=== PATIENT | male | born 1995 | race Caucasian/White ===

== ENCOUNTER 2022-03-12 14:19 | Observation (INO) ==
[2022-03-12 14:57] LABS: Basophils # (auto) 0.06 K/uL (0-0.2); Basophils % (auto) 1.1 %; Eosinophils # (auto) 0.18 K/uL (0-0.50); Eosinophils % (auto) 3.2 %; Hematocrit (blood only) 40.5 % (42.0-52.0); Hemoglobin 13.6 g/dl (14.0-18.0); Immature Granulocytes # (auto) 0.01 K/uL (0.01-0.20); Immature Granulocytes % (auto) 0.2 %; Lymphocytes # (auto) 1.33 K/uL (1.2-3.4); Lymphocytes % (auto) 23.6 %; Mean Corpuscular Hemoglobin 30.2 pg (25.0-34.0); Mean Corpuscular Hgb Conc 33.6 g/dL (32.0-36.0); Mean Platelet Volume 9.7 fL (9.4-12.4); Monocytes # (auto) 0.39 K/uL (0.11-0.59); Monocytes % (auto) 6.9 %; Neutrophils # (auto) 3.66 K/uL (1.40-6.50); Platelet Count 333 K/uL (130-400); RDW Coefficient of Variation 12.1 % (11.5-14.5); RDW Standard Deviation 39.5 fL (36.4-46.3); White Blood Count 5.63 K/ul (4.8-10.8)
--- NOTE | 2022-03-12 15:08 | Emergency Department Note ---
Impression & Plan Foreign body ingestion ED Provider Note NAME: CHENTE [id number] CHRISTIANSEN AGE: 26 SEX: M : 1995 ARRIVES VIA: Walk-In INFORMANT: Patient, ED PROVIDER(S): Simon Reis DO CHIEF COMPLAINT: Possible GI foreign body HPI: The patient is a 26-year-old male who presented to the emergency department for an evaluation of possible GI foreign body. The patient swallowed a part of a glove that had fentanyl inside of it. He currently is at the residential. He states that his visitor was found to have balloons with fentanyl and side. When he came to check his room he put the balloon in his mouth and swallowed it. He states he has been trying to drink plenty of liquids and force himself to vomit but he has not had any resolution of the GI foreign body. He has been able to drink without difficulty. He notices no diarrhea. He said no bowel movement since this incident occurred. This became aware to the [facility] today so they sent him to the emergency department for further evaluation. ROS: See above HPI for pertinent positives & negatives. A total of 10 systems reviewed and were otherwise negative. PAST MEDICAL HISTORY: See Below PAST SURGICAL HISTORY: See Below FAMILY HISTORY: See Below SOCIAL HISTORY: See Below HOME MEDICATIONS: See Below ALLERGIES: See Below VITALS: See Below PHYSICAL EXAMINATION: GENERAL: Patient is awake alert in no acute distress patient is resting comfortably and showing no signs of anxiety EYES: The conjunctivae are clear. The pupils are round and reactive. EARS, NOSE, MOUTH AND THROAT: The nose is without any evidence of any deformity. NECK: The neck is nontender and supple. RESPIRATORY: Normal respiratory effort is noted there is no evidence of wheezing rhonchi or rales CARDIOVASCULAR: Regular rate and rhythm noted there no murmurs rubs or gallops normal S1 normal S2. GASTROINTESTINAL: The abdomen is soft. Abdomen is nontender. MUSCULOSKELETAL/EXTREMITIES: There is no evidence of gross deformity full range of motion is noted in the hips and shoulders. SKIN: There is no obvious evidence of any rash. There are no petechiae, pallor or cyanosis noted. NEUROLOGIC: Patient is awake alert and oriented x3 strength is symmetric patellar reflexes are 2+ bilaterally MEDICAL DECISION MAKING: The patient is a 26-year-old male who presented from the residential for an evaluation of possible ingestion of fentanyl. The patient was visited on . The visitor was detained because they had multiple small rubber luh ves that had the fingers cut off and were filled with fentanyl. The patient ingested his prior to being caught with it. He admitted to swallowing the contraband. He states has not had a bowel movement since that time but he tried to make himself vomit multiple times since then. The patient is not exhibiting signs of opiate toxicity. CT of the abdomen and pelvis was obtained but given the small size of this foreign body it was not definitely identified. I discussed the patient's laboratory and radiographic studies with him. Given his findings I discussed his condition with the on-call [facility] hospitalist. The patient may require a formal bowel prep in order to pass what ever this presumed ingested drug container could be so he does not develop opiate poisoning. Triage Nursing notes reviewed. Prior medical records reviewed Vital Signs: reviewed and remarkable for no significant abnormalities Differential diagnosis: ER treatment provided: See below Diagnostics interpreted by me: ECG: none Cardiac Monitoring: An order was placed for continuous cardiac monitoring. The monitor shows a rate of 74 bpm with sinus rhythm. Laboratory studies: As stated above and show below. Imaging studies: See below. Radiographic imaging was reviewed by myself Consultation(s): I discussed this case with Edith [facility] Past Med/Surg History Medical History Anxiety PTSD (post-traumatic stress disorder) Surgical History H/O wrist surgery Social History Smoking Status: Former smoker Cigarettes Per Day: half a pack; Second Hand Exposure: Yes; Do You Dip or Chew Tobacco: No; Hx Alcohol Use: No Hx Substance Use: No Preferred Language: Scottish Communication Ability: Effective Acds Block 1 Operator Required: No Beliefs That Will Affect Care: None Current Living Situation: Other Current Living Situation Comment: [facility] Feels Safe at Home: Yes Allergies Allergies Allergy/AdvReac Type Severity Reaction Status Date / Time trazodone Allergy Unknown Verified 03/12/22 18:02 Home Meds Home Medications Medication Instructions Recorded Confirmed mirtazapine 15 mg tablet 15 mg PO HS 03/12/22 03/12/22 Results & Data (ED) Vital Signs Vital Signs - 24 hr 03/12/22 14:29 03/12/22 14:39 03/12/22 14:53 Temperature 36.8 C Temperature Source Oral Pulse Rate 90 72 Pulse Rate from SpO2 Sensor 75 Respiratory Rate 24 15 Respiratory Effort / Characteristics Non-Labored Spontaneous Respiratory Depth Normal Respiratory Pattern Regular Blood Pressure 144/102 H Blood Pressure Mean 116 Blood Pressure Position Sitting Pulse Oximetry 98 99 Oxygen Delivery Method Room Air Room Air Sepsis Recent Fever Within 48 Hours No Sepsis New/Unexplained Change in Mental Status No Sepsis Action Taken by Nursing No Action Required 03/12/22 15:00 03/12/22 15:00 03/12/22 15:30 Temperature Temperature Source Pulse Rate 72 Pulse Rate from SpO2 Sensor 77 Respiratory Rate 12 Respiratory Effort / Characteristics Respiratory Depth Respiratory Pattern Blood Pressure 129/79 123/94 Blood Pressure Mean 95 103 Blood Pressure Position Pulse Oximetry 97 Oxygen Delivery Method Sepsis Recent Fever Within 48 Hours Sepsis New/Unexplained Change in Mental Status Sepsis Action Taken by Nursing 03/12/22 15:30 03/12/22 16:00 03/12/22 16:00 Temperature Temperature Source Pulse Rate 63 59 L Pulse Rate from SpO2 Sensor 62 59 L Respiratory Rate 23 16 Respiratory Effort / Characteristics Respiratory Depth Respiratory Pattern Blood Pressure 129/88 Blood Pressure Mean 101 Blood Pressure Position Pulse Oximetry 100 99 Oxygen Delivery Method Sepsis Recent Fever Within 48 Hours Sepsis New/Unexplained Change in Mental Status Sepsis Action Taken by Nursing 03/12/22 16:30 03/12/22 16:30 03/12/22 17:00 Temperature Temperature Source Pulse Rate 62 Pulse Rate from SpO2 Sensor Respiratory Rate 14 Respiratory Effort / Characteristics Respiratory Depth Respiratory Pattern Blood Pressure 122/75 127/80 Blood Pressure Mean 90 95 Blood Pressure Position Pulse Oximetry Oxygen Delivery Method Sepsis Recent Fever Within 48 Hours Sepsis New/Unexplained Change in Mental Status Sepsis Action Taken by Nursing 03/12/22 17:00 03/12/22 17:30 03/12/22 17:30 Temperature Temperature Source Pulse Rate 71 55 L Pulse Rate from SpO2 Sensor Respiratory Rate 20 15 Respiratory Effort / Characteristics Respiratory Depth Respiratory Pattern Blood Pressure 139/75 Blood Pressure Mean 96 Blood Pressure Position Pulse Oximetry 98 Oxygen Delivery Method Sepsis Recent Fever Within 48 Hours Sepsis New/Unexplained Change in Mental Status Sepsis Action Taken by Nursing 03/12/22 18:00 Temperature Temperature Source Pulse Rate 61 Pulse Rate from SpO2 Sensor Respiratory Rate 16 Respiratory Effort / Characteristics Respiratory Depth Respiratory Pattern Blood Pressure 123/86 Blood Pressure Mean 98 Blood Pressure Position Pulse Oximetry 98 Oxygen Delivery Method Sepsis Recent Fever Within 48 Hours Sepsis New/Unexplained Change in Mental Status Sepsis Action Taken by Shelter Medications Current Medication List: was personally reviewed by me Laboratory Data Attestation: I reviewed the patient's lab results. 03/12/22 14:45 03/12/22 14:45 Lab Results 03/12/22 03/12/22 03/12/22 Range/Units 14:45 14:45 17:57 WBC 5.63 (4.8-10.8) K/ul RBC 4.50 L (4.70-6.10) M/uL Hgb 13.6 L (14.0-18.0) g/dl Hct 40.5 L (42.0-52.0) % MCV 90.0 (80.0-100.0) fL MCH 30.2 (25.0-34.0) pg MCHC 33.6 (32.0-36.0) g/dL RDW Std Deviation 39.5 (36.4-46.3) fL RDW Coeff of Memo 12.1 (11.5-14.5) % Plt Count 333 (130-400) K/uL MPV 9.7 (9.4-12.4) fL Immature Gran % (Auto) 0.2 % Neut % (Auto) 65.0 % Lymph % (Auto) 23.6 % Barren % (Auto) 6.9 % Eos % (Auto) 3.2 % Baso % (Auto) 1.1 % Neut # (Auto) 3.66 (1.40-6.50) K/uL Lymph # (Auto) 1.33 (1.2-3.4) K/uL Barren # (Auto) 0.39 (0.11-0.59) K/uL Eos # (Auto) 0.18 (0-0.50) K/uL Baso # (Auto) 0.06 (0-0.2) K/uL Immature Gran # (Auto) 0.01 (0.01-0.20) K/uL Sodium 139 (136-145) mmol/L Potassium 4.7 (3.5-5.1) mmol/L Chloride 103 (98-107) mmol/L Carbon Dioxide 31 (21-32) mmol/L Anion Gap 5 (3-11) BUN 10 (6-23) mg/dl Creatinine 0.85 (0.6-1.4) mg/dl Est Cr Clr Drug Dosing 134.0 ml/min Est GFR ( Amer) 141.3 ml/min Est GFR (Non-Af Amer) 122.0 ml/min BUN/Creatinine Ratio 11.8 (10-20) Glucose 95 (70-99(Fasting)) mg/dl Calcium 9.5 (8.5-10.1) mg/dl Total Bilirubin 0.6 (0.2-1.0) mg/dl AST 22 (13-39) U/L ALT 16 (7-52) U/L Alkaline Phosphatase 52 (34-104) U/L Total Protein 7.9 (6.0-8.3) gm/dl Albumin 4.8 (3.4-5.0) gm/dl Globulin 3.1 (2.5-4.0) gm/dl Albumin/Globulin Ratio 1.5 (0.9-2) Lipase 11 (11-82) U/L SARS-CoV-2, RNA, NAAT NEGATIVE (NEGATIVE) Administered Medications Mirtazapine (Mirtazapine Tab 15 Mg Tab) 15 mg PO HS EDMUND Stop: 04/11/22 20:59 Last Admin: 03/12/22 21:17 Dose: 15 mg Documented By: TMD Discontinued Medications Ioversol (Optiray 350 100ml) 88 ml IV ONCE ONE Stop: 03/12/22 17:22 Last Admin: 03/12/22 17:21 Dose: 88 ml Documented By: DG Imaging Data Radiologist's Impression: Abdomen/Pelvis CT 03/12/22 14:35 CT OF THE ABDOMEN AND PELVIS WITH CONTRAST CLINICAL HISTORY: possible FB COMPARISON STUDY: None. TECHNIQUE: Following IV administration of Optiray, axial images of the abdomen and pelvis were obtained from the lung bases to the proximal femurs. Images were reviewed in the axial, sagittal, and coronal planes. IV contrast was administered without complication. Automated exposure control was utilized for the study. A dose lowering technique was utilized adhering to the principles of ALARA. Oral contrast was administered. CT DOSE: 294.66 mGy.cm FINDINGS: Lung bases are unremarkable. No pneumatosis, free air or portal venous gas is present. No radiopaque foreign bodies are identified. No definite filling defects are identified within the oral contrast. There is no evidence for a bowel obstruction. Liver, spleen, adrenal glands, right kidney and pancreas are normal. There is a 1.9 cm left renal cyst. There is no hydronephrosis. There is no biliary or pancreatic ductal dilatation. The appendix is normal. Caliber and wall thickness of small and large bowel are normal. Major vasculature is patent. IMPRESSION: 1. No radiopaque foreign bodies identified. No definite filling defects within the oral contrast. 2. No evidence for a bowel obstruction. No free air. ACT 112: Negative or not required by law. Electronically signed by: Bull Jensen M.D. 03/12/2022 5:38 PM Discharge Plan Visit Data Chief Complaint: Foreign Body Stated Complaint: SWALLOWED A BALLOON OF FENTANYL ED Provider: Simon Reis Discharge Problem: Foreign body ingestion Patient Disposition: Admitted As Inpatient Discharge Instructions Interventions: ED Discharge Assessment Last Done: 03/12/22 20:23
[2022-03-12 15:23] LABS: Albumin Level 4.8 gm/dl (3.4-5.0); Bilirubin,Total 0.6 mg/dl (0.2-1.0); Calcium 9.5 mg/dl (8.5-10.1); Potassium 4.7 mmol/L (3.5-5.1)
[2022-03-12 15:29] LABS: Albumin Globulin Ratio 1.5 (0.9-2); BUN Creatinine Ratio 11.8 (10-20); Est GFR (African American) 141.3 ml/min; Globulin 3.1 gm/dl (2.5-4.0); Total Protein 7.9 gm/dl (6.0-8.3)
[2022-03-12] MEDS ORDERED: OPTIRAY 350 100ml IV ONE (17:21)
--- NOTE | 2022-03-12 17:39 | CT Scan Report ---
CT OF THE ABDOMEN AND PELVIS WITH CONTRAST CLINICAL HISTORY: possible FB COMPARISON STUDY: None. TECHNIQUE: Following IV administration of Optiray, axial images of the abdomen and pelvis were obtain ed from the lung bases to the proximal femurs. Images were reviewed in the axial, sagittal, and coron al planes. IV contrast was administered without complication. Automated exposure control was utilize d for the study. A dose lowering technique was utilized adhering to the principles of ALARA. Oral co ntrast was administered. CT DOSE: 294.66 mGy.cm FINDINGS: Lung bases are unremarkable. No pneumatosis, free air or portal venous gas is present. No r adiopaque foreign bodies are identified. No definite filling defects are identified within the oral c ontrast. There is no evidence for a bowel obstruction. Liver, spleen, adrenal glands, right kidney an d pancreas are normal. There is a 1.9 cm left renal cyst. There is no hydronephrosis. There is no eufemia iary or pancreatic ductal dilatation. The appendix is normal. Caliber and wall thickness of small and large bowel are normal. Major vasculature is patent. IMPRESSION: 1. No radiopaque foreign bodies identified. No definite filling defects within the oral contrast. 2. No evidence for a bowel obstruction. No free air. ACT 112: Negative or not required by law. Electronically signed by: Bull Jensen M.D. 03/12/2022 5:38 PM
--- NOTE | 2022-03-12 20:02 | History & Physical Report ---
Date of Service March 12, 2022 Assessment & Plan (1) Fentanyl poisoning: (2) Foreign body ingestion: (3) Anxiety: (4) Insomnia: Plan Hx of ingestion of fentanyl with small piece of glove: -ingested it 2 days ago -no acute withdrawal or toxicities symptoms -VSS and normal PE -CT abd: No radiopaque foreign bodies identified. No definite filling defects within the oral contrast. -Labs are unremarkable -pt has not had BM for 2 days but he has been eating less - will do clear liquid diet -admit to tele due to recent hx of fentanyl use - repeat CBC and CMP polly -likely discharge tomorrow Anxiety and Insomnia: -will hold remeron for now Diet:clear liquid diet DVT PPx:Ambulation Code Status:FULL CODE Emergency Contact:CHANTAL Tse History of Present Illness Chief Complaint: ingestion of fentanyl Primary Care Provider: CHANTAL Tse Pt is a 26 y/o M with hx of anxiety and insomnia brought in from [facility] for fentanyl ingestion with piece of glove on 5pm on 03/10 (2 days ago). Per pt he has been eating less and has been drinking more water. He denied any abd pain, N/V, change in vision or mentation, hallucination or delusion. He has not had any BM for 2 days. Pt only takes Remeron at night time. Denied any other drug use Allergies Allergy/AdvReac Type Severity Reaction Status Date / Time trazodone Allergy Unknown Verified 03/12/22 18:02 Home Medications Medication Instructions Recorded Confirmed Type mirtazapine 15 mg tablet 15 mg PO HS 03/12/22 03/12/22 History Past Med/Surg History Medical History Anxiety PTSD (post-traumatic stress disorder) Surgical History H/O wrist surgery Social History Smoking Status: Never smoker Hx Alcohol Use: No Hx Substance Use: Yes Preferred Language: Kinyarwanda Feels Safe at Home: Yes Review of Systems Review of Systems: At least 10 Review of systems were reviewed and all negative except as indicated in HPI Physical Exam Physical Exam: General:. NAD, well developed, well nourished, average body habitus HEENT:. Normocephalic and atraumatic, Normal Conjunctiva, EOMI, Sclera is non- icteric Lungs:. No signs of respiratory distress, CTA, no wheezing or crackles Heart:. Normal S1, S2, no murmur Abdominal:. ND, Soft, NT MSK:. No deformities of UE and LE, No leg edema Neuro exam: PERRLA, CN II-XII intact, normal motor strength Skin:. no rash or open wound Psych:. AAOx3, normal affect Results & Data Results & Data ([facility]) Vital Signs (Past 12 Hours) Vital Signs Temp Pulse Resp BP Pulse Ox O2 Del Method 03/12/22 19:30 53 L 13 03/12/22 19:30 121/74 03/12/22 19:00 67 13 03/12/22 19:00 137/81 03/12/22 18:30 58 L 13 125/83 99 03/12/22 18:00 61 16 123/86 98 03/12/22 17:30 55 L 15 98 03/12/22 17:30 139/75 03/12/22 17:00 71 20 03/12/22 17:00 127/80 03/12/22 16:30 62 14 03/12/22 16:30 122/75 03/12/22 16:00 59 L 16 99 03/12/22 16:00 129/88 03/12/22 15:30 63 23 100 03/12/22 15:30 123/94 03/12/22 15:00 72 12 97 03/12/22 15:00 129/79 03/12/22 14:53 72 15 99 03/12/22 14:39 Room Air 03/12/22 14:29 36.8 C 90 24 144/102 H 98 Room Air Laboratory Results Short CBC 03/12/22 Range/Units 14:45 WBC 5.63 (4.8-10.8) K/ul Hgb 13.6 L (14.0-18.0) g/dl Hct 40.5 L (42.0-52.0) % Plt Count 333 (130-400) K/uL BMP 03/12/22 14:45 Sodium 139 Potassium 4.7 Chloride 103 Carbon Dioxide 31 BUN 10 Creatinine 0.85 Glucose 95 Calcium 9.5 Liver Function 03/12/22 Range/Units 14:45 Total Bilirubin 0.6 (0.2-1.0) mg/dl AST 22 (13-39) U/L ALT 16 (7-52) U/L Alkaline Phosphatase 52 (34-104) U/L Albumin 4.8 (3.4-5.0) gm/dl Diagnostic Findings Abdomen/Pelvis CT 03/12/22 14:35 CT OF THE ABDOMEN AND PELVIS WITH CONTRAST CLINICAL HISTORY: possible FB COMPARISON STUDY: None. TECHNIQUE: Following IV administration of Optiray, axial images of the abdomen and pelvis were obtained from the lung bases to the proximal femurs. Images were reviewed in the axial, sagittal, and coronal planes. IV contrast was administered without complication. Automated exposure control was utilized for the study. A dose lowering technique was utilized adhering to the principles of ALARA. Oral contrast was administered. CT DOSE: 294.66 mGy.cm FINDINGS: Lung bases are unremarkable. No pneumatosis, free air or portal venous gas is present. No radiopaque foreign bodies are identified. No definite filling defects are identified within the oral contrast. There is no evidence for a bowel obstruction. Liver, spleen, adrenal glands, right kidney and pancreas are normal. There is a 1.9 cm left renal cyst. There is no hydronephrosis. There is no biliary or pancreatic ductal dilatation. The appendix is normal. Caliber and wall thickness of small and large bowel are normal. Major vasculature is patent. IMPRESSION: 1. No radiopaque foreign bodies identified. No definite filling defects within the oral contrast. 2. No evidence for a bowel obstruction. No free air. ACT 112: Negative or not required by law. Electronically signed by: Bull Jensen M.D. 03/12/2022 5:38 PM Code Status & VTE Plan VTE Prophylaxis Plan VTE Prophylaxis will be ordered: No Reason for no VTE drug order: Treatment not indicated
[2022-03-12] MEDS ORDERED: ACETAMINOPHEN 325 MG TAB PO PRN (20:45)
[2022-03-12] MEDS ORDERED: ONDANSETRON INJ 2 MG/ML 2 ML VIAL IV PRN (20:45)
[2022-03-12] MEDS ORDERED: MIRTAZAPINE TAB 15 MG TAB PO SCH (21:00)
[2022-03-12] MEDS: MIRTAZAPINE TAB 15 MG TAB PO SCH (21:17)
[2022-03-13 07:01] LABS: Basophils # (auto) 0.05 K/uL (0-0.2); Basophils % (auto) 0.8 %; Eosinophils # (auto) 0.19 K/uL (0-0.50); Hematocrit (blood only) 40.6 % (42.0-52.0); Hemoglobin 13.6 g/dl (14.0-18.0); Immature Granulocytes # (auto) 0.02 K/uL (0.01-0.20); Immature Granulocytes % (auto) 0.3 %; Lymphocytes # (auto) 2.21 K/uL (1.2-3.4); Lymphocytes % (auto) 35.4 %; Mean Corpuscular Hemoglobin 29.9 pg (25.0-34.0); Mean Corpuscular Hgb Conc 33.5 g/dL (32.0-36.0); Mean Corpuscular Volume 89.2 fL (80.0-100.0); Mean Platelet Volume 10.1 fL (9.4-12.4); Monocytes # (auto) 0.53 K/uL (0.11-0.59); Monocytes % (auto) 8.5 %; Neutrophils # (auto) 3.24 K/uL (1.40-6.50); Platelet Count 300 K/uL (130-400); RDW Coefficient of Variation 12.1 % (11.5-14.5); RDW Standard Deviation 39.6 fL (36.4-46.3); Red Blood Count 4.55 M/uL (4.70-6.10); White Blood Count 6.24 K/ul (4.8-10.8)
[2022-03-13 07:31] LABS: Calcium 10.1 mg/dl (8.5-10.1); Magnesium 2.2 mg/dl (1.7-2.4); Potassium 3.9 mmol/L (3.5-5.1)
[2022-03-13 07:36] LABS: Creatinine Clr Calc Pharmacy 142.4 ml/min; Est GFR (African American) 144.9 ml/min
--- NOTE | 2022-03-13 12:22 | Hospitalist Progress Note ---
Date of Service March 13, 2022 Assessment & Plan (1) Fentanyl poisoning: (2) Foreign body ingestion: (3) Anxiety: (4) Insomnia: Plan 26-year-old male with history of anxiety and insomnia on Remeron was brought in from nursing home 03/12 due to history of fentanyl ingestion with a piece of glove at 5 PM on 03/10/2022. Per patient, he tried to vomit it out at nursing home during which time he covered the camera and hence was not given any food and hence he has not taken any "real food" since last 2 days ERP PM. He is being managed for the following: Fentanyl ingestion Ingestion of foreign body/piece of glove -ingested it 2 days ago ERP PM. -no acute withdrawal or toxicities symptoms; pt reports no prior drug use -VSS and normal PE -CT abd: No radiopaque foreign bodies identified. No definite filling defects within the oral contrast. -Labs are unremarkable -pt has not had BM for 2 days but he has not gotten food to eat per him - Advance diet as tolerated. -c/w tele due to recent hx of fentanyl use - labs reviewed, fairly wnl. f/u labs in AM - DC once patient is eating and tolerating diet, atleast moving gas w/ no belly pain. -f/u on toxicology profile sent today. Anxiety and Insomnia: melatonin. home meds. Diet: ADAT DVT PPx: scds, if is staying more than miles, then consider pharmaco Px. Code Status:FULL CODE Emergency Contact:[facility] [place] Admission and Anticipated Discharge Date Admission Date: March 12, 2022 Subjective Patient seen and examined at bedside as a follow-up of ingestion of fentanyl with small piece of glove. Patient was lying in bed, on room air, NAD, reports no new acute event overnight, denies any belly pain or nausea or vomiting. Per patient, patient has not moved bowel gas. Patient also reports that he has not eaten anything in the last 2 to 3 days. He would like to eat more solid food. Advance diet as tolerated. Patient denies any chest pain or sore throat or fever or chills or pain or burning with passing urine or other review of symptoms. Physical Exam Physical Exam: GENERAL: Alert and oriented x3. NAD, on RA. HEENT: No pallor, no icterus. Pupils equal, round and reactive to light. Oral mucosa moist. NECK: No JVD, no neck masses. HEART: S1 and S2 heard. Regular rate and rhythm. No murmur, no gallop. RESPIRATORY SYSTEM: Normal AP diameter. No accessory muscle use. No wheezing, no crackles. ABDOMEN: Soft, bowel sounds present, nontender, no distention. CENTRAL NERVOUS SYSTEM: No facial droop. Speech is clear. Obeys simple commands. Moves extremities. EXTREMITIES: No edema, no erythema seen. Results & Data Results & Data ([facility]) Vital Signs (Past 12 Hours) Vital Signs Temp Pulse Pulse Resp BP Pulse Ox O2 Del Method 03/13/22 08:06 36.5 C 51 L 20 114/71 98 Room Air 03/13/22 07:44 46 L 03/13/22 03:08 36.5 C 44 L 18 100/64 99 Room Air 03/13/22 00:37 61
[2022-03-13 15:22] LABS: Amphetamines+Metham, Urine Neg (Neg); Barbiturates, Urine Neg (Neg); Benzodiazepine, Urine Neg (Neg); Cocaine, Urine Neg (Neg); MDMA (Ecstacy), Urine Neg (Neg); Methadone, Urine Neg (Neg); Opiate, Urine Neg (Neg); Phencyclidine, Urine Neg (Neg)
[2022-03-13] MEDS ORDERED: MELATONIN 3 MG TAB PO SCH (21:00)
[2022-03-13] MEDS: MIRTAZAPINE TAB 15 MG TAB PO SCH (21:38)
[2022-03-14 08:00] LABS: Hematocrit (blood only) 40.3 % (42.0-52.0); Hemoglobin 13.8 g/dl (14.0-18.0); Mean Corpuscular Hemoglobin 30.1 pg (25.0-34.0); Mean Corpuscular Hgb Conc 34.2 g/dL (32.0-36.0); Mean Platelet Volume 10.1 fL (9.4-12.4); Platelet Count 311 K/uL (130-400); RDW Coefficient of Variation 12.2 % (11.5-14.5); RDW Standard Deviation 39.3 fL (36.4-46.3); Red Blood Count 4.58 M/uL (4.70-6.10); White Blood Count 7.07 K/ul (4.8-10.8)
[2022-03-14 08:23] LABS: Calcium 9.8 mg/dl (8.5-10.1); Potassium 4.2 mmol/L (3.5-5.1)
[2022-03-14 08:28] LABS: BUN Creatinine Ratio 14.3 (10-20); Creatinine Clr Calc Pharmacy 135.6 ml/min; Est GFR (Non-African American) 122.6 ml/min; Phosphorus 4.1 mg/dl (2.5-4.9)
--- NOTE | 2022-03-14 12:13 | Discharge Summary ---
Date of Service March 14, 2022 Admission HPI Per Admitting Provider Pt is a 26 y/o M with hx of anxiety and insomnia brought in [facility] fentanyl ingestion with piece of glove on 5pm on 03/10 (2 days ago). Per pt he has been eating less and has been drinking more water. He denied any abd pain, N/V, change in vision or mentation, hallucination or delusion. He has not had any BM for 2 days. Pt only takes Remeron at night time. Denied any other drug use Admission Exam Per Admitting Provider General:.NAD, well developed, well nourished, average body habitus HEENT:.Normocephalic and atraumatic, Normal Conjunctiva, EOMI, Sclera is non- icteric Lungs:.No signs of respiratory distress, CTA, no wheezing or crackles Heart:.Normal S1, S2, no murmur Abdominal:.ND, Soft, NT MSK:.No deformities of UE and LE, No leg edema Neuro exam: PERRLA, CN II-XII intact, normal motor strength Skin:.no rash or open wound Psych:.AAOx3, normal affect Principal Diagnosis Foreign body ingestion Discharge Exam GENERAL: Alert and oriented x3. NAD, on RA. HEENT: No pallor, no icterus. Pupils equal, round and reactive to light. Oral mucosa moist. NECK: No JVD, no neck masses. HEART: S1 and S2 heard. Regular rate and rhythm. No murmur, no gallop. RESPIRATORY SYSTEM: Normal AP diameter. No accessory muscle use. No wheezing, no crackles. ABDOMEN: Soft, bowel sounds present, nontender, no distention. CENTRAL NERVOUS SYSTEM: No facial droop. Speech is clear. Obeys simple commands. Moves extremities. EXTREMITIES: No edema, no erythema seen. Discharge Data Allergies Allergy/AdvReac Type Severity Reaction Status Date / Time trazodone Allergy Unknown Verified 03/12/22 18:02 Consultations 03/12/22 17:46 ED Decision to Admit Stat Ordered Studies 03/12/22 14:35 CT abd pelvis oral and IV con Stat Hospital Course (1) Fentanyl poisoning: (2) Foreign body ingestion: (3) Anxiety: (4) Insomnia: Plan 26-year-old male with history of anxiety and insomnia on Remeron was brought in from [facility]12 due to history of fentanyl ingestion with a piece of glove at 5 PM on 03/10/2022. 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 -no acute withdrawal or toxicities symptoms; pt reports no prior drug use -VSS and normal PE -CT abd: No radiopaque foreign bodies identified. No definite filling defects within the oral contrast. -Labs are unremarkable -Patient tolerating diet well, has moved bowel. -Patient with no belly pain or nausea or vomiting. -Toxicology screen noted.. -Patient hemodynamically stable. Anxiety and Insomnia: melatonin. home meds. Diet: ADAT DVT PPx: scds, if is staying more than miles, then consider pharmaco Px. Code Status:FULL CODE Emergency Contact:CHANTAL Tse Patient being discharged back to [facility] facility with following instruction at the point of discharge: Follow-up with your primary care physician within a week time. Watch out for piece of glove in the stool when you move bowel, if you have not passed the piece of glove and you started having constipation/obstipation/nausea/vomiting/abdominal pain then you will need immediate clinical evaluation either by your PCP or by emergency. Take diet as tolerated and maintain adequate hydration. If you have difficulty falling asleep in the night, you can use [id number] melatonin 2 to 3 hours prior to bedtime. Take your medications as prescribed. Home Health Attestation I certify that this patient is under my care and that I, or a physicians animal assistant working with me, had a face to-face encounter that meets the home health [id number] encounter requirements with this patient. The encounter with the patient was in whole, or in part, for the following medical condition, which is the primary reason for home health care (list medical condition): I certify that, based on my findings, the following services are medically necessary home health services: My clinical findings support the need for the above services because: Further, I certify that my clinical findings support that this patient is homebound (i.e. absences from home require considerable and taxing effort and are for medical reasons or mandaeism services or infrequently or of short duration when for other reasons) because: Certification for Home Health Services: Based on the above findings, I certify that this patient is confined to the home and needs intermittent penitentiary care, physical therapy and/or speech therapy or continues to need occupational therapy. The patient is under my care, and I have initiated the establishment of the plan of care. This patient will be followed by a physician who will periodically review the plan of care. Total Time Total Time Spent Total Time Spent (In Minutes): 45 Discharge Plan Discharge Items Patient Disposition: [facility] Reason For Visit: INGESTION OF FOREIGN OBJECT Discharge Diagnosis: Foreign body ingestion Activity: Resume your previous activity Non-emergency contact: Primary Care Provider Call non-emergency contact if: you have any medication questions, your symptoms worsen and your temperature is above 101 Follow-up/Referrals: Dedrick CORNEJO [Primary Care Provider] - Diet: Regular Addtl Attending Provider Instructions: Follow-up with your primary care physician within a week time. Watch out for piece of glove in the stool when you move bowel, if you have not passed the piece of glove and you started having constipation/obstipation/nausea/vomiting/abdominal pain then you will need immediate clinical evaluation either by your PCP or by emergency. Take diet as tolerated and maintain adequate hydration. If you have difficulty falling asleep in the night, you can use [id number] melatonin 2 to 3 hours prior to bedtime. Take your medications as prescribed. Pending Studies at Discharge: No Skilled Items Patient informed of condition?: Yes DNR: No Discharge Level of Care: Other Communicable Disease: No Discharge Prognosis: Stable Lines: None Urinary Catheter: No Medications and DC Order Prescriptions: Continued mirtazapine 15 mg Tablet 15 mg PO HS Admission Data Admit Date/Time: 03/12/22 18:17 Attending Provider: Wilfredo Arciniega Admit Provider: Bakari Rivera Primary Care Provider: Dedrick CORNEJO Other Providers: Bakari Rivera
== END 2022-03-14 13:53 ==
LOC: 2W 14:19 → ED 14:19 → SUATTDRO 18:17 → 2W 20:23
DX: Z87.891 Personal history of nicotine dependence; G47.00 Insomnia, unspecified; T40.411A Poisoning by fentanyl or fentanyl analogs, accidental (unintentional), initial encounter; Z20.822 Contact with and (suspected) exposure to COVID-19; T18.9XXA Foreign body of alimentary tract, part unspecified, initial encounter; Z79.899 Other long term (current) drug therapy; Z88.8 Allergy status to other drugs, medicaments and biological substances